=== PATIENT | male | born 1935 | race Caucasian/White ===

== ENCOUNTER 2016-07-11 07:36 | Observation (INO) | payer OTHER ==
[~2016-07-11] VITALS: Ht 167.6 cm; Wt 56.2 kg
[~2016-07-11 07:36] MED LIST: ALBU0.084 IN; ASPI-306 OR; CASC450C3 OR; CHOL20009 OR; FLUT500M2 IN; GINK30CA OR; HYDR25TA4 OR; ISOSPOW2 PO; MULT-610 OR; MULTTAB5 OR; OMEG100078 OR; POTA99TA13 OR; PRAS25CA8 OR; TIOTCAP IN; [UNRECOGNIZED DRUG - OTHER] OR
[2016-07-11] MEDS: SODIUM CHLORIDE 0.9% 1,000 ML IV ONE ×2 (08:19→08:55)
[2016-07-11 08:25] LABS: Basophils # (auto) 0 uL; Basophils % (auto) 0.5 % (0.0-2.0); Eosinophils # (auto) 0 uL; Eosinophils % (auto) 0.3 % (0.0-7.0); Hematocrit 31.7 % (41.0-53.0); Hemoglobin 10.4 g/dL (13.5-17.5); Lymphocytes # (auto) 0.5 uL; Lymphocytes % (auto) 5.3 % (10.0-50.0); Mean Corpuscular Hemoglobin 29.5 pg (28.0-32.0); Mean Corpuscular Hgb Conc. 32.8 g/dL (32.0-36.0); Mean Corpuscular Volume 90.2 fL (80.0-100.0); Mean Platelet Volume 7.5 fL (7.4-10.4); Monocytes # (auto) 1.1 uL; Monocytes % (auto) 11.5 % (0.0-12.0); Neutrophils # (auto) 7.9 uL; Neutrophils % (auto) 82.4 % (37.0-80.0); Platelet Count (auto) 472 10^3/uL (140-450); Red Cell Distribution Width 15.4 % (11.6-16.0); White Blood Cell 9.6 10^3/uL (4.4-10.8)
[2016-07-11] MEDS ORDERED: SODIUM CHLORIDE 0.9% 1,000 ML IVB ONE (08:29)
[2016-07-11 08:38] LABS: Albumin 3.4 g/dL (3.4-5.0); Alkaline Phosphatase 113 U/L (45-117); Anion Gap 7 (5-15); Aspartate Aminotransferase 24 U/L (15-37); BUN/Creatinine Ratio 13.5; Bilirubin, Total 0.4 mg/dL (0.2-1.0); Blood Urea Nitrogen 15 mg/dL (7-18); Calcium 9.4 mg/dL (8.5-10.1); Carbon Dioxide 33 mmol/L (21-32); Chloride 93 mmol/L (98-107); GFR African American 82 mL/min; GFR Non-African American 68 mL/min; Glucose 124 mg/dL (74-106); Magnesium 2.3 mg/dL (1.6-2.6); Potassium 3.7 mmol/L (3.5-5.1); Sodium 133 mmol/L (136-145); Total Protein 7.1 g/dL (6.4-8.2)
[2016-07-11 09:20] LABS: INR 1.04 (0.9-1.15); Partial Thromboplastin Time 30.9 sec (22.64-33.71); Prothrombin Time 11.2 sec (9.37-12.3)
[2016-07-11 10:51] LABS: Urine Bilirubin Negative (Negative); Urine Blood Negative /uL (Negative); Urine Color Yellow (Yellow); Urine Glucose Normal (Normal); Urine Ketone Negative (Negative); Urine Nitrite Negative (Negative); Urine RBC <1 /hpf (0 - 3); Urine Urobilinogen Normal (Negative); Urine pH 6.5 (5.0-8.0)
[2016-07-11] MEDS ORDERED: IOHEXOL 350 MG/ML 100ML IJ ONE ×2 (12:22→12:50)
[2016-07-11] MEDS ORDERED: SODIUM CHLORIDE 0.9% 1,000 ML IV SCH (15:03)
[2016-07-11] MEDS ORDERED: LORazepam 0.5 MG TAB PO PRN (15:15)
[2016-07-11] MEDS ORDERED: ASPirin 81 mg TAB PO ONE (15:15)
[2016-07-11] MEDS ORDERED: ACETAMINOPHEN 500 MG TAB PO PRN (15:15)
[2016-07-11] MEDS ORDERED: ALBUTEROL SULF 2.5 MG/0.5ML(0.5%) NEB SOLN NEB PRN (15:15)
[2016-07-11] MEDS ORDERED: TEMAZEPAM 15 MG CAP PO PRN (15:15)
[2016-07-11] MEDS ORDERED: LACTULOSE 20Gm/30ML SOLN PO PRN (15:15)
[2016-07-11] MEDS ORDERED: DEXTROSE (50%) 50ML SYRG IV PRN (15:15)
[2016-07-11] MEDS ORDERED: PROCHLORPERAZINE EDISYLATE 5 MG/ML 2ML VIAL IV PRN (15:15)
[2016-07-11] MEDS ORDERED: MORPHINE SULF INJ 2 MG/ML SYRINGE 1ML IV PRN ×2 (15:15)
[2016-07-11] MEDS ORDERED: HYDROcodone-ACET 5/325MG TAB PO PRN (15:15)
[2016-07-11] MEDS ORDERED: NITROGLYCERIN 0.4 MG SL TAB SL PRN (15:15)
[2016-07-11] MEDS ORDERED: ENOXAPARIN SOD 40 MG/0.4 ML SYRINGE SC SCH (15:30)
[2016-07-11 16:14] LABS: Temperature: 24.3 C (20.0-25.0)
[2016-07-11 16:39] VITALS: BP 149/80
[2016-07-11] MEDS ORDERED: ATORVASTATIN 20 MG TAB PO SCH (22:00)
[2016-07-12] MEDS ORDERED: ASPirin 81 mg TAB PO SCH (10:00)
== END 2016-07-11 16:43 | disposition left against medical advice (07) | DRG 312 ==
LOC: ER 07:44 → OVERFLOW 08:07 → ER 16:39
PROVIDERS: ADMIT Emergency Medicine; ATTEND Emergency Medicine
DX: R55 Syncope and collapse (principal); J90 Pleural effusion, not elsewhere classified; E87.1 Hypo-osmolality and hyponatremia; D64.9 Anemia, unspecified; J44.9 Chronic obstructive pulmonary disease, unspecified; I10 Essential (primary) hypertension; R63.4 Abnormal weight loss; D69.6 Thrombocytopenia, unspecified; M35.3 Polymyalgia rheumatica; Z86.73 Personal history of transient ischemic attack (TIA), and cerebral infarction without residual deficits; Z98.890 Other specified postprocedural states
CPT/HCPCS: 36415; 70450; 71020; 71275; 80053; 80320; 81001; 82550; 82607; 82746; 83036; 83735; 84443; 84484; 85025; 85379; 85610; 85652; 85730; 93005; 96360; 96361; 99285; G0378; G0434; J7030; Q9967

== ENCOUNTER → 2016-09-03 | Outpatient (CLI) | payer OTHER ==
[~2016-09-03] MED LIST changes: +ALBUTEROL SULF 2.5 MG/0.5ML(0.5%) NEB SOLN ONE; +SODIUM CHLORIDE 0.9 % NEB SOLN 3ML NEB ONE
== END | disposition home or self-care (01) ==
LOC: RT 08:51
PROVIDERS: ATTEND Internal Medicine Gastroenterology
DX: Z01.818 Encounter for other preprocedural examination (principal); J44.9 Chronic obstructive pulmonary disease, unspecified
CPT/HCPCS: 94060

== ENCOUNTER → 2016-09-17 | Outpatient (CLI) | payer OTHER ==
[~2016-09-17] MED LIST changes: -ALBUTEROL SULF 2.5 MG/0.5ML(0.5%) NEB SOLN ONE; -SODIUM CHLORIDE 0.9 % NEB SOLN 3ML NEB ONE
[2016-09-17 11:16] LABS: Basophils # (auto) 0 uL; Basophils % (auto) 0.5 % (0.0-2.0); Eosinophils # (auto) 0.1 uL; Eosinophils % (auto) 1.2 % (0.0-7.0); Hematocrit 37.4 % (41.0-53.0); Hemoglobin 12.3 g/dL (13.5-17.5); Lymphocytes # (auto) 0.6 uL; Lymphocytes % (auto) 10.5 % (10.0-50.0); Mean Corpuscular Hemoglobin 29.4 pg (28.0-32.0); Mean Corpuscular Volume 89.1 fL (80.0-100.0); Mean Platelet Volume 7.9 fL (7.4-10.4); Monocytes # (auto) 0.7 uL; Monocytes % (auto) 11.2 % (0.0-12.0); Neutrophils # (auto) 4.7 uL; Neutrophils % (auto) 76.6 % (37.0-80.0); Platelet Count (auto) 355 10^3/uL (140-450); Red Cell Distribution Width 18.3 % (11.6-16.0); White Blood Cell 6.1 10^3/uL (4.4-10.8)
[2016-09-17 11:34] LABS: Albumin 3.4 g/dL (3.4-5.0); BUN/Creatinine Ratio 15.3; Bilirubin, Total 0.3 mg/dL (0.2-1.0); Calcium 9.3 mg/dL (8.5-10.1); Potassium 3.9 mmol/L (3.5-5.1); Total Protein 6.8 g/dL (6.4-8.2)
== END | disposition home or self-care (01) ==
LOC: LAB 10:35
PROVIDERS: ATTEND Internal Medicine
DX: R35.1 Nocturia (principal); N40.0 Benign prostatic hyperplasia without lower urinary tract symptoms; M25.50 Pain in unspecified joint
CPT/HCPCS: 36415; 80053; 82550; 84153; 85025; 86141; 86431

== ENCOUNTER → 2016-09-24 | Outpatient (CLI) | payer OTHER | END | disposition home or self-care (01) | LOC: XY 08:49 | PROVIDERS: ATTEND Internal Medicine Cardiovascular Disease | DX: I08.3 Combined rheumatic disorders of mitral, aortic and tricuspid valves (principal); I27.2 Other secondary pulmonary hypertension; I51.89 Other ill-defined heart diseases | CPT/HCPCS: 93306; 93886 ==

== ENCOUNTER → 2016-10-02 | Outpatient (CLI) | payer OTHER | END | disposition home or self-care (01) | LOC: XY 08:41 | PROVIDERS: ATTEND Internal Medicine | DX: M54.9 Dorsalgia, unspecified (principal); M25.559 Pain in unspecified hip | CPT/HCPCS: 78306; A9503 ==

== ENCOUNTER → 2016-10-16 | Outpatient (CLI) | payer OTHER ==
[2016-10-16 19:43] LABS: Body Fluid Polymorphonuclear 1 %
== END | disposition home or self-care (01) ==
LOC: LAB 13:46
DX: M25.50 Pain in unspecified joint (principal); M00.9 Pyogenic arthritis, unspecified; M10.00 Idiopathic gout, unspecified site; M54.10 Radiculopathy, site unspecified
CPT/HCPCS: 87205; 89051; 89060

== ENCOUNTER → 2016-11-10 | Day surgery (SDC) | payer OTHER ==
[2016-11-07 09:50] LABS: Urine Bilirubin Negative (Negative); Urine Blood Negative /uL (Negative); Urine Color Yellow (Yellow); Urine Glucose Normal (Normal); Urine Ketone Negative (Negative); Urine Nitrite Negative (Negative); Urine Urobilinogen Normal (Negative)
[2016-11-07 09:53] LABS: Basophils # (auto) 0 uL; Basophils % (auto) 0.3 % (0.0-2.0); CONDITION Y; Eosinophils # (auto) 0 uL; Eosinophils % (auto) 0.7 % (0.0-7.0); Hematocrit 33.5 % (41.0-53.0); Hemoglobin 11.2 g/dL (13.5-17.5); Lymphocytes # (auto) 0.5 uL; Lymphocytes % (auto) 8.7 % (10.0-50.0); Mean Corpuscular Hemoglobin 29.4 pg (28.0-32.0); Mean Corpuscular Hgb Conc. 33.6 g/dL (32.0-36.0); Mean Corpuscular Volume 87.6 fL (80.0-100.0); Mean Platelet Volume 7.6 fL (7.4-10.4); Monocytes # (auto) 0.5 uL; Monocytes % (auto) 8.2 % (0.0-12.0); Neutrophils % (auto) 82.1 % (37.0-80.0); Platelet Count (auto) 428 10^3/uL (140-450); White Blood Cell 6.1 10^3/uL (4.4-10.8)
[2016-11-07 10:09] LABS: INR 0.98 (0.9-1.15); Prothrombin Time 10.7 sec (9.37-12.3)
[2016-11-07 10:13] LABS: Albumin 3.5 g/dL (3.4-5.0); Bilirubin, Total 0.2 mg/dL (0.2-1.0); Calcium 9.2 mg/dL (8.5-10.1); Potassium 4.1 mmol/L (3.5-5.1); Total Protein 7.4 g/dL (6.4-8.2)
[~2016-11-10] VITALS: Ht 167.6 cm; Wt 52.2 kg
[~2016-11-10] MED LIST changes: +ALBUAER3 IN; -FLUT500M2 IN; +GABA-497 OR; -HYDR25TA4 OR; +LISI10TA6 PO; +MIDAZOLAM HCL 1MG/1ML-2 ML VIAL ONE; +ONDANSETRON HCL 4 MG/2 ML VIAL ONE; +PROPOFOL 10 MG/ML 20 ML IV ONE; +SODIUM CHLORIDE LOCK 20 ML ONE; -TIOTCAP IN; +UMEC1AER IN; +fentaNYL CITRATE 100 MCG/2 ML VL ONE
[2016-11-10 11:47] VITALS: BP 115/65
== END | disposition home or self-care (01) ==
LOC: GI 08:03
PROVIDERS: ATTEND Internal Medicine Gastroenterology
DX: K29.60 Other gastritis without bleeding (principal); K29.80 Duodenitis without bleeding; K44.9 Diaphragmatic hernia without obstruction or gangrene; K22.8 Other specified diseases of esophagus; J43.9 Emphysema, unspecified; J45.909 Unspecified asthma, uncomplicated; F17.210 Nicotine dependence, cigarettes, uncomplicated
CPT/HCPCS: 36415; 43239; 80053; 81003; 85025; 85610; 85730; J2250; J2405; J2704; J3010

== ENCOUNTER → 2017-05-27 | Outpatient (CLI) | payer OTHER ==
[~2017-05-27] MED LIST changes: +FERR1TAB36 PO; -GABA-497 OR; +GABA300C11 OR; -MIDAZOLAM HCL 1MG/1ML-2 ML VIAL ONE; -ONDANSETRON HCL 4 MG/2 ML VIAL ONE; +PANT1INJ3 PO; -PROPOFOL 10 MG/ML 20 ML IV ONE; -SODIUM CHLORIDE LOCK 20 ML ONE; -fentaNYL CITRATE 100 MCG/2 ML VL ONE
[2017-05-27 09:10] LABS: Basophils # (auto) 0.1 uL; Eosinophils # (auto) 0.1 uL; Hemoglobin 7.8 g/dL (13.5-17.5); Neutrophils # (auto) 5.2 uL; Nucleated Red Blood Cells % 0.2 %; Red Cell Distribution Width 17.4 % (11.8-14.3); White Blood Cell 6.4 10^3/uL (4.4-10.8)
[2017-05-27 09:12] LABS: Basophils % (auto) 1.3 % (0.0-2.0); Eosinophils % (auto) 1.1 % (0.0-7.0); Lymphocytes # (auto) 0.5 uL; Lymphocytes % (auto) 7.3 % (10.0-50.0); Mean Corpuscular Hgb Conc. 28.7 g/dL (32.0-36.0); Mean Corpuscular Volume 69.7 fL (80.0-100.0); Monocytes # (auto) 0.6 uL; Monocytes % (auto) 9.4 % (0.0-12.0); Neutrophils % (auto) 80.9 % (37.0-80.0); Platelet Count (auto) 462 10^3/uL (140-450); Red Blood Cells 3.88 10^6/uL (4.5-5.90)
[2017-05-27 09:37] LABS: Albumin 3.3 g/dL (3.4-5.0); BUN/Creatinine Ratio 14.6; Bilirubin, Total 0.4 mg/dL (0.2-1.0); Calcium 9.4 mg/dL (8.5-10.1); Potassium 4.2 mmol/L (3.5-5.1); Total Protein 7.4 g/dL (6.4-8.2)
[2017-05-27 09:53] LABS: Urine Bacteria NONE SEEN /hpf (None Seen); Urine Blood Negative /uL (Negative); Urine WBC 2 /hpf (0 - 3)
== END | disposition home or self-care (01) ==
LOC: LAB 08:16
PROVIDERS: ATTEND Internal Medicine
DX: I10 Essential (primary) hypertension (principal)
CPT/HCPCS: 36415; 80053; 80061; 81001; 82043; 82607; 84443; 85025

== ENCOUNTER 2017-05-30 08:01 | Emergency (ER) | payer OTHER ==
[~2017-05-30] VITALS: Ht 170.2 cm; Wt 57.7 kg
[~2017-05-30 08:01] MED LIST changes: -FERR1TAB36 PO; -PANT1INJ3 PO
[2017-05-30] MEDS ORDERED: SODIUM CHLORIDE 0.9% 1,000 ML IV ONE (08:32)
[2017-05-30 08:45] LABS: Basophils # (auto) 0.1 uL; Eosinophils # (auto) 0 uL; Eosinophils % (auto) 0.3 % (0.0-7.0); Hematocrit 26.3 % (41.0-53.0); Mean Corpuscular Volume 67.7 fL (80.0-100.0); Red Blood Cells 3.89 10^6/uL (4.5-5.90); Red Cell Distribution Width 17.5 % (11.8-14.3)
[2017-05-30 08:46] LABS: Basophils % (auto) 0.6 % (0.0-2.0); Hemoglobin 7.8 g/dL (13.5-17.5); Lymphocytes # (auto) 0.3 uL; Lymphocytes % (auto) 3.8 % (10.0-50.0); Mean Corpuscular Hgb Conc. 29.5 g/dL (32.0-36.0); Monocytes % (auto) 11.1 % (0.0-12.0); Neutrophils # (auto) 7.7 uL; Neutrophils % (auto) 84.2 % (37.0-80.0); Nucleated Red Blood Cells % 0.1 %; Platelet Count (auto) 480 10^3/uL (140-450); White Blood Cell 9.1 10^3/uL (4.4-10.8)
[2017-05-30 08:58] LABS: Albumin 3.3 g/dL (3.4-5.0); BUN/Creatinine Ratio 12.1; Calcium 8.6 mg/dL (8.5-10.1); Potassium 4.2 mmol/L (3.5-5.1)
[2017-05-30 09:01] LABS: Bilirubin, Total 0.4 mg/dL (0.2-1.0); Total Protein 7.2 g/dL (6.4-8.2)
[2017-05-30 09:05] LABS: INR 1.04 (0.9-1.15); Partial Thromboplastin Time 28.7 sec (22.64-33.71); Prothrombin Time 11.3 sec (9.37-12.3)
[2017-05-30] MEDS ORDERED: NICOTINE 14 MG/24HR TOPICAL PATCH TD ONE (10:45)
[2017-05-30 11:48] LABS: Urine Bacteria NONE SEEN /hpf (None Seen); Urine Blood Negative /uL (Negative); Urine Specific Gravity 1.008 (1.001-1.035); Urine WBC 29 /hpf (0 - 3)
[2017-05-30 12:15] VITALS: BP 155/72
== END 2017-05-30 12:34 | disposition home or self-care (01) ==
LOC: ER 08:01
DX: D50.9 Iron deficiency anemia, unspecified (principal); E46 Unspecified protein-calorie malnutrition; J44.9 Chronic obstructive pulmonary disease, unspecified; N39.0 Urinary tract infection, site not specified; I10 Essential (primary) hypertension; F17.210 Nicotine dependence, cigarettes, uncomplicated
CPT/HCPCS: 36415; 71046; 80053; 81001; 83735; 84443; 85025; 85610; 85730; 93005; 94761; 96360; 96361; 99285; J7030

== ENCOUNTER 2017-06-08 10:27 | Inpatient (IN) | payer OTHER ==
[~2017-06-08] VITALS: Ht 165.1 cm; Wt 52.4 kg
[2017-06-08 12:07] LABS: Eosinophils # (auto) 0 uL; Eosinophils % (auto) 0.1 % (0.0-7.0); Hemoglobin 8.2 g/dL (13.5-17.5); Lymphocytes # (auto) 0.4 uL; Mean Corpuscular Hemoglobin 21.8 pg (28.0-32.0); Monocytes # (auto) 0.5 uL; Monocytes % (auto) 8.6 % (0.0-12.0); Neutrophils # (auto) 4.7 uL; Nucleated Red Blood Cells % 0.3 %; Red Cell Distribution Width 20.1 % (11.8-14.3); White Blood Cell 5.6 10^3/uL (4.4-10.8)
[2017-06-08 12:11] LABS: Basophils # (auto) 0 uL; Basophils % (auto) 0.5 % (0.0-2.0); Hematocrit 28.3 % (41.0-53.0); Mean Corpuscular Volume 75.1 fL (80.0-100.0); Neutrophils % (auto) 83.8 % (37.0-80.0); Platelet Count (auto) 372 10^3/uL (140-450); Red Blood Cells 3.77 10^6/uL (4.5-5.90)
[2017-06-08 12:28] LABS: INR 1.16 (0.9-1.15); Partial Thromboplastin Time 29.9 sec (22.64-33.71); Prothrombin Time 12.7 sec (9.37-12.3)
[2017-06-08 12:34] LABS: Albumin 2.7 g/dL (3.4-5.0); BUN/Creatinine Ratio 19.4; Bilirubin, Total 0.3 mg/dL (0.2-1.0); Calcium 8.4 mg/dL (8.5-10.1); Potassium 4.1 mmol/L (3.5-5.1); Total Protein 6.2 g/dL (6.4-8.2)
[2017-06-08] MEDS ORDERED: IPRATROPIUM BROM 0.5 MG/2.5ML INH SOL HHN ONE (13:15)
[2017-06-08] MEDS ORDERED: FUROSEMIDE 40 MG/4 ML VIAL IV ONE (13:15)
[2017-06-08] MEDS ORDERED: methylPREDNISolone SOD SUCC 125 MG/2 ML VL IV ONE (13:15)
[2017-06-08] MEDS ORDERED: ALBUTEROL SULF 2.5 MG/0.5ML(0.5%) NEB SOLN HHN ONE (13:15)
[2017-06-08 13:56] LABS: Magnesium 2.5 mg/dL (1.6-2.6)
[2017-06-08] MEDS ORDERED: MILK OF MAGNESIA 30ML SUSP PO PRN (15:00)
[2017-06-08] MEDS ORDERED: NICOTINE 21MG/24 HR TOPICAL PATCH TD ONE (15:00)
[2017-06-08] MEDS ORDERED: HYDROcodone-ACET 5/325MG TAB PO PRN (15:15)
[2017-06-08] MEDS ORDERED: LISINOPRIL 10 MG TAB PO ONE (15:15)
[2017-06-08] MEDS ORDERED: ONDANSETRON HCL 4 MG/2 ML VIAL IV PRN (15:15)
[2017-06-08] MEDS ORDERED: ACETAMINOPHEN 325 MG TAB PO PRN (15:15)
[2017-06-08] MEDS ORDERED: cloNIDine HCL 0.1 MG TAB PO PRN (15:15)
[2017-06-08] MEDS ORDERED: MORPHINE SULFATE 4 MG/ML SYR/VIAL IV PRN ×2 (15:15)
[2017-06-08] MEDS ORDERED: NITROGLYCERIN 0.4 MG SL TAB SL PRN (15:15)
[2017-06-08 15:26] LABS: Urine WBC None Seen /hpf (0 - 3)
[2017-06-08] MEDS: PANTOPRAZOLE 40 MG TAB PO SCH (15:45)
[2017-06-08 16:18] LABS: Urine Bacteria NONE SEEN /hpf (None Seen); Urine Blood Negative /uL (Negative); Urine Specific Gravity 1.008 (1.001-1.035)
[2017-06-08] MEDS: ENOXAPARIN SOD 40 MG/0.4 ML SYRINGE SC SCH (16:25)
[2017-06-08] MEDS: methylPREDNISolone SOD SUCC 40 MG/ML VL IV SCH (18:11)
[2017-06-08] MEDS: FUROSEMIDE 40 MG/4 ML VIAL IV SCH (18:13)
[2017-06-08] MEDS: IPRATROPIUM BROM 0.5 MG/2.5ML INH SOL NEB SCH ×2 (19:23→22:03)
[2017-06-08] MEDS: ALBUTEROL SULF 2.5 MG/0.5ML(0.5%) NEB SOLN NEB SCH ×2 (19:23→22:03)
[2017-06-08 20:05] VITALS: BP 153/75
[2017-06-08] MEDS: FERROUS SULFATE 325 MG TAB PO SCH (20:15)
[2017-06-08] MEDS: BOOST PLUS 8 ounce PO SCH (20:15)
[2017-06-08] MEDS ORDERED: FAMOTIDINE 20 MG TAB PO SCH (22:00)
[2017-06-08] MEDS: SODIUM CHLOR 0.9% PF (SALINE LOCK) 10ML VIAL IV SCH (22:12)
[2017-06-08] MEDS: POTASSIUM CHL 10 Meq TABLET PO SCH (23:07)
[2017-06-08] MEDS: GABAPENTIN 300 MG CAP PO SCH (23:07)
[2017-06-09] MEDS: methylPREDNISolone SOD SUCC 40 MG/ML VL IV SCH ×5 (00:09→23:39)
[2017-06-09] MEDS: IPRATROPIUM BROM 0.5 MG/2.5ML INH SOL NEB SCH ×6 (03:24→21:49)
[2017-06-09] MEDS: ALBUTEROL SULF 2.5 MG/0.5ML(0.5%) NEB SOLN NEB SCH ×6 (03:24→21:50)
[2017-06-09] MEDS: FUROSEMIDE 40 MG/4 ML VIAL IV SCH ×2 (06:00→18:00)
[2017-06-09] MEDS: SODIUM CHLOR 0.9% PF (SALINE LOCK) 10ML VIAL IV SCH ×3 (06:00→21:26)
[2017-06-09] MEDS: GABAPENTIN 300 MG CAP PO SCH ×3 (06:00→21:26)
[2017-06-09 06:13] LABS: Basophils # (auto) 0 uL; Eosinophils # (auto) 0 uL; Lymphocytes # (auto) 0.1 uL; Mean Corpuscular Hgb Conc. 29.5 g/dL (32.0-36.0); Monocytes # (auto) 0.3 uL; Neutrophils # (auto) 6.3 uL; Nucleated Red Blood Cells % 0.2 %; White Blood Cell 6.7 10^3/uL (4.4-10.8)
[2017-06-09 06:16] LABS: Basophils % (auto) 0.1 % (0.0-2.0); Lymphocytes % (auto) 1.5 % (10.0-50.0); Mean Corpuscular Hemoglobin 22.1 pg (28.0-32.0); Mean Corpuscular Volume 74.9 fL (80.0-100.0); Monocytes % (auto) 4.4 % (0.0-12.0); Platelet Count (auto) 339 10^3/uL (140-450)
[2017-06-09 06:27] LABS: Red Cell Distribution Width 21.2 % (11.8-14.3)
[2017-06-09 06:35] LABS: Potassium 3.7 mmol/L (3.5-5.1)
[2017-06-09 06:39] LABS: Albumin 2.7 g/dL (3.4-5.0); BUN/Creatinine Ratio 18.9
[2017-06-09 06:41] LABS: Bilirubin, Total 0.3 mg/dL (0.2-1.0); Total Protein 5.8 g/dL (6.4-8.2)
[2017-06-09 09:02] VITALS: BP 130/72
[2017-06-09] MEDS: FERROUS SULFATE 325 MG TAB PO SCH ×2 (09:31→18:00)
[2017-06-09] MEDS: POTASSIUM CHL 10 Meq TABLET PO SCH ×2 (09:32→21:26)
[2017-06-09] MEDS: MULTIPLE VITAMIN TAB PO SCH (09:32)
[2017-06-09] MEDS: PANTOPRAZOLE 40 MG TAB PO SCH (09:32)
[2017-06-09] MEDS: ENOXAPARIN SOD 40 MG/0.4 ML SYRINGE SC SCH (09:32)
[2017-06-09] MEDS: NICOTINE 21MG/24 HR TOPICAL PATCH TD SCH (09:32)
[2017-06-09] MEDS: BOOST PLUS 8 ounce PO SCH ×3 (09:32→18:00)
[2017-06-09] MEDS ORDERED: LISINOPRIL 10 MG TAB PO SCH (10:00)
[2017-06-09] MEDS ORDERED: cefTRIAXone 1GM/10ml IVPUSH 10 ML IV ONE (15:45)
[2017-06-09 16:00] VITALS: BP_SYST 119; BP_SYST 127; BP_DIAS 60; BP_DIAS 70
[2017-06-09] MEDS ORDERED: AZITHROMYCIN 500MG/ 250ML 250 ML IV ONE (16:00)
[2017-06-09] MEDS ORDERED: FERR1TAB36 PO (16:36)
[2017-06-09] MEDS ORDERED: PANT1INJ3 PO (16:36)
[2017-06-09 20:00] VITALS: BP 128/68
[2017-06-10] VITALS (7 sets, daily range): BP systolic 119–154; BP diastolic 57–90
[2017-06-10] MEDS: ALBUTEROL SULF 2.5 MG/0.5ML(0.5%) NEB SOLN NEB SCH ×6 (01:55→22:32)
[2017-06-10] MEDS: IPRATROPIUM BROM 0.5 MG/2.5ML INH SOL NEB SCH ×6 (01:55→22:32)
[2017-06-10] MEDS ORDERED: SODIUM CHLORIDE 0.9 % NEB SOLN 3ML NEB ONE (05:12)
[2017-06-10] MEDS: GABAPENTIN 300 MG CAP PO SCH ×3 (06:00→20:27)
[2017-06-10] MEDS: SODIUM CHLOR 0.9% PF (SALINE LOCK) 10ML VIAL IV SCH ×3 (06:18→20:27)
[2017-06-10] MEDS: methylPREDNISolone SOD SUCC 40 MG/ML VL IV SCH ×3 (06:51→17:53)
[2017-06-10] MEDS: FUROSEMIDE 40 MG/4 ML VIAL IV SCH ×2 (06:51→17:53)
[2017-06-10] MEDS: AZITHROMYCIN 500MG/ 250ML 250 ML IV SCH (11:53)
[2017-06-10] MEDS: cefTRIAXone 1GM/10ml IVPUSH 10 ML IV SCH (11:53)
[2017-06-10] MEDS: MULTIPLE VITAMIN TAB PO SCH (11:53)
[2017-06-10] MEDS: POTASSIUM CHL 10 Meq TABLET PO SCH ×2 (11:53→20:28)
[2017-06-10] MEDS: BOOST PLUS 8 ounce PO SCH ×3 (11:53→17:53)
[2017-06-10] MEDS: PANTOPRAZOLE 40 MG TAB PO SCH (11:54)
[2017-06-10] MEDS: ENOXAPARIN SOD 40 MG/0.4 ML SYRINGE SC SCH (11:54)
[2017-06-10] MEDS: FERROUS SULFATE 325 MG TAB PO SCH ×2 (15:01→17:53)
[2017-06-10] MEDS: NICOTINE 21MG/24 HR TOPICAL PATCH TD SCH (15:02)
[2017-06-10] MEDS ORDERED: HALOPERIDOL LACTATE 5 MG/ML INJ VIAL IM PRN (18:00)
[2017-06-10] MEDS: DOCUSATE SOD 100 MG CAP PO PRN (18:37)
[2017-06-10] MEDS: HALOPERIDOL LACTATE 5 MG/ML INJ VIAL IM PRN (21:44)
[2017-06-11] VITALS (7 sets, daily range): BP systolic 113–149; BP diastolic 48–74
[2017-06-11] MEDS: methylPREDNISolone SOD SUCC 40 MG/ML VL IV SCH ×5 (01:08→23:56)
[2017-06-11] MEDS: ALBUTEROL SULF 2.5 MG/0.5ML(0.5%) NEB SOLN NEB SCH ×5 (02:00→22:10)
[2017-06-11] MEDS: IPRATROPIUM BROM 0.5 MG/2.5ML INH SOL NEB SCH ×5 (02:00→22:10)
[2017-06-11] MEDS: SODIUM CHLOR 0.9% PF (SALINE LOCK) 10ML VIAL IV SCH ×3 (05:11→21:59)
[2017-06-11] MEDS: FUROSEMIDE 40 MG/4 ML VIAL IV SCH ×2 (05:18→18:05)
[2017-06-11] MEDS: GABAPENTIN 300 MG CAP PO SCH ×3 (05:19→21:59)
[2017-06-11] MEDS: BOOST PLUS 8 ounce PO SCH ×3 (08:00→18:11)
[2017-06-11 08:07] LABS: Basophils # (auto) 0 uL; Basophils % (auto) 0.1 % (0.0-2.0); Eosinophils # (auto) 0 uL; Hemoglobin 9.4 g/dL (13.5-17.5); Lymphocytes # (auto) 0.1 uL; Monocytes # (auto) 0.2 uL; Neutrophils # (auto) 9.4 uL; Red Blood Cells 4.22 10^6/uL (4.5-5.90); White Blood Cell 9.7 10^3/uL (4.4-10.8)
[2017-06-11 08:09] LABS: Hematocrit 31.7 % (41.0-53.0); Lymphocytes % (auto) 0.9 % (10.0-50.0); Mean Corpuscular Hemoglobin 22.3 pg (28.0-32.0); Mean Corpuscular Hgb Conc. 29.6 g/dL (32.0-36.0); Mean Corpuscular Volume 75.2 fL (80.0-100.0); Monocytes % (auto) 2.2 % (0.0-12.0); Neutrophils % (auto) 96.8 % (37.0-80.0); Nucleated Red Blood Cells % 0.1 %; Platelet Count (auto) 335 10^3/uL (140-450)
[2017-06-11 08:21] LABS: Albumin 3.1 g/dL (3.4-5.0); BUN/Creatinine Ratio 24.2; Calcium 8.5 mg/dL (8.5-10.1); Potassium 3.8 mmol/L (3.5-5.1)
[2017-06-11 08:24] LABS: Bilirubin, Total 0.3 mg/dL (0.2-1.0); Total Protein 6.6 g/dL (6.4-8.2)
[2017-06-11] MEDS: FERROUS SULFATE 325 MG TAB PO SCH ×2 (08:54→18:04)
[2017-06-11] MEDS: cefTRIAXone 1GM/10ml IVPUSH 10 ML IV SCH (08:59)
[2017-06-11] MEDS: MULTIPLE VITAMIN TAB PO SCH (10:09)
[2017-06-11] MEDS: AZITHROMYCIN 500MG/ 250ML 250 ML IV SCH (10:09)
[2017-06-11] MEDS: NICOTINE 21MG/24 HR TOPICAL PATCH TD SCH (10:11)
[2017-06-11] MEDS: PANTOPRAZOLE 40 MG TAB PO SCH (10:12)
[2017-06-11] MEDS: POTASSIUM CHL 10 Meq TABLET PO SCH ×2 (10:12→21:59)
[2017-06-11] MEDS: ENOXAPARIN SOD 40 MG/0.4 ML SYRINGE SC SCH (10:12)
[2017-06-11] MEDS ORDERED: IOHEXOL 350 MG/ML 100ML IJ ONE (22:27)
[2017-06-12] MEDS: HALOPERIDOL LACTATE 5 MG/ML INJ VIAL IM PRN (01:26)
[2017-06-12] MEDS: ALBUTEROL SULF 2.5 MG/0.5ML(0.5%) NEB SOLN NEB SCH ×6 (02:20→23:13)
[2017-06-12] MEDS: IPRATROPIUM BROM 0.5 MG/2.5ML INH SOL NEB SCH ×6 (02:21→23:13)
[2017-06-12 04:00] VITALS: BP 149/87
[2017-06-12 05:01] LABS: Basophils # (auto) 0 uL; Eosinophils # (auto) 0 uL; Lymphocytes # (auto) 0.1 uL; Mean Corpuscular Volume 74.9 fL (80.0-100.0); Monocytes # (auto) 0.4 uL; Neutrophils # (auto) 8.9 uL
[2017-06-12 05:04] LABS: Basophils % (auto) 0.3 % (0.0-2.0); Hematocrit 30.1 % (41.0-53.0); Lymphocytes % (auto) 1.4 % (10.0-50.0); Mean Corpuscular Hemoglobin 22.5 pg (28.0-32.0); Monocytes % (auto) 4.2 % (0.0-12.0); Neutrophils % (auto) 94.1 % (37.0-80.0); Nucleated Red Blood Cells % 0.1 %; Platelet Count (auto) 314 10^3/uL (140-450); Red Blood Cells 4.02 10^6/uL (4.5-5.90); White Blood Cell 9.5 10^3/uL (4.4-10.8)
[2017-06-12 05:11] LABS: Albumin 3.1 g/dL (3.4-5.0); Calcium 8.8 mg/dL (8.5-10.1); Potassium 4.1 mmol/L (3.5-5.1)
[2017-06-12 05:13] LABS: BUN/Creatinine Ratio 32.6
[2017-06-12 05:15] LABS: Bilirubin, Total 0.3 mg/dL (0.2-1.0); Red Cell Distribution Width 31.9 % (11.8-14.3); Total Protein 6.3 g/dL (6.4-8.2)
[2017-06-12] MEDS: FUROSEMIDE 40 MG/4 ML VIAL IV SCH ×2 (05:46→18:10)
[2017-06-12] MEDS: methylPREDNISolone SOD SUCC 40 MG/ML VL IV SCH ×3 (05:46→18:06)
[2017-06-12] MEDS: SODIUM CHLOR 0.9% PF (SALINE LOCK) 10ML VIAL IV SCH ×3 (05:46→20:51)
[2017-06-12] MEDS: GABAPENTIN 300 MG CAP PO SCH ×3 (05:47→20:51)
[2017-06-12 08:00] VITALS: BP 154/86
[2017-06-12] MEDS: BOOST PLUS 8 ounce PO SCH ×3 (08:00→18:00)
[2017-06-12] MEDS: FERROUS SULFATE 325 MG TAB PO SCH ×2 (08:45→18:06)
[2017-06-12] MEDS: cefTRIAXone 1GM/10ml IVPUSH 10 ML IV SCH (08:45)
[2017-06-12] MEDS: AZITHROMYCIN 500MG/ 250ML 250 ML IV SCH (09:38)
[2017-06-12] MEDS: PANTOPRAZOLE 40 MG TAB PO SCH (09:38)
[2017-06-12] MEDS: MULTIPLE VITAMIN TAB PO SCH (09:38)
[2017-06-12] MEDS: POTASSIUM CHL 10 Meq TABLET PO SCH ×2 (09:38→20:51)
[2017-06-12] MEDS: ENOXAPARIN SOD 40 MG/0.4 ML SYRINGE SC SCH (09:39)
[2017-06-12] MEDS: DOCUSATE SOD 100 MG CAP PO PRN (09:40)
[2017-06-12] MEDS: NICOTINE 21MG/24 HR TOPICAL PATCH TD SCH (09:40)
[2017-06-12 12:00] VITALS: BP 119/64
[2017-06-12 16:00] VITALS: BP 144/76
[2017-06-12 20:00] VITALS: BP 148/66
[2017-06-13] VITALS: BP 125/76
[2017-06-13] MEDS: methylPREDNISolone SOD SUCC 40 MG/ML VL IV SCH ×3 (02:08→12:37)
[2017-06-13] MEDS: IPRATROPIUM BROM 0.5 MG/2.5ML INH SOL NEB SCH ×4 (03:34→14:31)
[2017-06-13] MEDS: ALBUTEROL SULF 2.5 MG/0.5ML(0.5%) NEB SOLN NEB SCH ×4 (03:34→14:31)
[2017-06-13 04:00] VITALS: BP 131/68
[2017-06-13 05:36] LABS: Basophils # (auto) 0 uL; Eosinophils # (auto) 0 uL; Lymphocytes # (auto) 0.1 uL; Monocytes # (auto) 0.3 uL
[2017-06-13 05:39] LABS: Basophils % (auto) 0.1 % (0.0-2.0); Hematocrit 35.8 % (41.0-53.0); Hemoglobin 10.6 g/dL (13.5-17.5); Lymphocytes % (auto) 0.8 % (10.0-50.0); Mean Corpuscular Hemoglobin 22.4 pg (28.0-32.0); Mean Corpuscular Hgb Conc. 29.5 g/dL (32.0-36.0); Monocytes % (auto) 4.1 % (0.0-12.0); Neutrophils # (auto) 7.7 uL; Nucleated Red Blood Cells % 0.1 %; Platelet Count (auto) 306 10^3/uL (140-450); Red Blood Cells 4.71 10^6/uL (4.5-5.90); White Blood Cell 8.1 10^3/uL (4.4-10.8)
[2017-06-13 05:49] LABS: Red Cell Distribution Width 32.1 % (11.8-14.3)
[2017-06-13 05:55] LABS: Albumin 3.2 g/dL (3.4-5.0); BUN/Creatinine Ratio 34.6; Bilirubin, Total 0.3 mg/dL (0.2-1.0); Calcium 9.1 mg/dL (8.5-10.1); Total Protein 6.6 g/dL (6.4-8.2)
[2017-06-13] MEDS: GABAPENTIN 300 MG CAP PO SCH (06:00)
[2017-06-13] MEDS: FUROSEMIDE 40 MG/4 ML VIAL IV SCH (06:00)
[2017-06-13] MEDS: SODIUM CHLOR 0.9% PF (SALINE LOCK) 10ML VIAL IV SCH (06:00)
[2017-06-13 08:00] VITALS: BP 126/84
[2017-06-13] MEDS: cefTRIAXone 1GM/10ml IVPUSH 10 ML IV SCH (08:47)
[2017-06-13] MEDS: FERROUS SULFATE 325 MG TAB PO SCH (08:47)
[2017-06-13] MEDS: BOOST PLUS 8 ounce PO SCH ×2 (08:47→12:38)
[2017-06-13 09:22] VITALS: BP 126/84
[2017-06-13] MEDS: MULTIPLE VITAMIN TAB PO SCH (09:31)
[2017-06-13] MEDS: AZITHROMYCIN 500MG/ 250ML 250 ML IV SCH (09:31)
[2017-06-13] MEDS: POTASSIUM CHL 10 Meq TABLET PO SCH (09:31)
[2017-06-13] MEDS: PANTOPRAZOLE 40 MG TAB PO SCH (09:31)
[2017-06-13] MEDS: ENOXAPARIN SOD 40 MG/0.4 ML SYRINGE SC SCH (09:31)
[2017-06-13] MEDS: NICOTINE 21MG/24 HR TOPICAL PATCH TD SCH (09:31)
[2017-06-13 11:15] VITALS: BP 119/74
== END 2017-06-13 14:02 | disposition hospice, inpatient (51) | DRG 291 ==
LOC: ER 10:27 → OVERFLOW 10:28 → DOU IN ICU 06-09 15:05
PROVIDERS: ADMIT Internal Medicine; ATTEND Family Medicine
DX: I13.0 Hypertensive heart and chronic kidney disease with heart failure and stage 1 through stage 4 chronic kidney disease, or unspecified chronic kidney disease (principal); I50.43 Acute on chronic combined systolic (congestive) and diastolic (congestive) heart failure; I26.99 Other pulmonary embolism without acute cor pulmonale; J96.21 Acute and chronic respiratory failure with hypoxia; G93.41 Metabolic encephalopathy; J18.9 Pneumonia, unspecified organism; E44.0 Moderate protein-calorie malnutrition; E87.2 Acidosis; D68.9 Coagulation defect, unspecified; J96.22 Acute and chronic respiratory failure with hypercapnia; J44.0 Chronic obstructive pulmonary disease with (acute) lower respiratory infection; J44.1 Chronic obstructive pulmonary disease with (acute) exacerbation; Z68.1 Body mass index [BMI] 19.9 or less, adult; E83.51 Hypocalcemia; W19.XXXA Unspecified fall, initial encounter; D50.9 Iron deficiency anemia, unspecified; F02.80 Dementia in other diseases classified elsewhere, unspecified severity, without behavioral disturbance, psychotic disturbance, mood disturbance, and anxiety; F17.210 Nicotine dependence, cigarettes, uncomplicated; G30.9 Alzheimer's disease, unspecified; G62.9 Polyneuropathy, unspecified; G89.29 Other chronic pain; I35.0 Nonrheumatic aortic (valve) stenosis; I70.0 Atherosclerosis of aorta; J20.9 Acute bronchitis, unspecified; M40.204 Unspecified kyphosis, thoracic region; M46.90 Unspecified inflammatory spondylopathy, site unspecified; M48.061 Spinal stenosis, lumbar region without neurogenic claudication; M71.30 Other bursal cyst, unspecified site; N18.9 Chronic kidney disease, unspecified; S09.90XA Unspecified injury of head, initial encounter; Y92.009 Unspecified place in unspecified non-institutional (private) residence as the place of occurrence of the external cause; Z51.5 Encounter for palliative care; Z66 Do not resuscitate; Z79.899 Other long term (current) drug therapy; Z86.73 Personal history of transient ischemic attack (TIA), and cerebral infarction without residual deficits
CPT/HCPCS: 36415; 36600; 51702; 70450; 71046; 71250; 71275; 80053; 81001; 82805; 83735; 83880; 84443; 84484; 85025; 85610; 85730; 87081; 87086; 87804; 92610; 93005; 93306; 93886; 94640; 94644; 95819; 96365; 96375; 99291; G0378